=== PATIENT | male | born 2000 | race African-American/Black ===

== ENCOUNTER 2022-02-03 15:42 | Observation (INO) | payer OTHER, SELFPAY ==
[2022-02-03] VITALS (16 sets, daily range): BP systolic 115–129; BP diastolic 69–82; PULSE 62–100; RESP 14–28; TEMP 36.2–36.7; O2SAT 98–100; BMI 20.3
--- NOTE | ~2022-02-03 | XR_ITS ---
EXAMINATION: XR DATE: 02/05/2022 11:00 CDT INDICATION: STONES . TECHNIQUE: 2 fluoroscopic images of the right upper quadrant were obtained during ERCP performed by t calvin surgeon. I was not present in the operating room. Fluoroscopy exposure time was 47.3 seconds. Cumu lative dose was 4.98 mGy. COMPARISON: CT abdomen and pelvis 02/03/2022 FINDINGS: Endoscopic access to the second portion of duodenum with catheterization and wire access into the com mon biliary duct. Small distal filling defect or air bubbles. IMPRESSION: Fluoroscopic documentation of ERCP. Please refer to the operative note for complete procedural detail s . Reviewed, dictated and finalized at location K. IMPRESSION: Fluoroscopic documentation of ERCP. Please refer to the operative note for comp lete procedural details .
--- NOTE | ~2022-02-03 | CT_ITS ---
EXAMINATION: CT abdomen pelvis w con DATE: 02/03/2022 17:02 INDICATION: abd pain TECHNIQUE: Computed tomography (CT) of the abdomen and pelvis was performed with 100 mL Omnipaque-350 intravenous contrast. Automated exposure control and iterative reconstruction technique were employe d. The dose-length product was 180.29 mGy-cm. COMPARISON: None. FINDINGS: Lower thorax: Unremarkable Liver: Mild intrahepatic biliary duct dilation. Biliary/Gallbladder: Cholelithiasis. Mild gallbladder wall edema. No extrahepatic bile duct dilation. 3 and 4 mm stones are seen in the mid and distal common bile duct respectively Pancreas: No mass or duct dilation. Spleen: Normal. Adrenals:No mass. Kidneys: No mass or hydronephrosis. Punctate nonobstructive left upper and lower pole calculi GI tract: Mild distal esophageal and gastric wall edema. No small or large bowel dilation. Appendix n ot visualized. Mesentery/Peritoneum: No ascites, mass, or free air. Retroperitoneum: No mass. Pelvis: Bladder wall thickening. Small volume free pelvic fluid. Soft Tissues: Soft tissues and body wall unremarkable. Bones: H-shaped vertebral body endplate changes. IMPRESSION: Choledocholithiasis with mild intrahepatic biliary duct dilation and without significant extrahepatic biliary duct dilation. Mild gallbladder wall edema. Mild esophagitis/gastritis. Bladder wall thicken ing which may be secondary to incomplete distention or cystitis. Small volume free pelvic fluid. Skel etal changes consistent with given history of sickle cell anemia. Reviewed, dictated and finalized at location K. IMPRESSION: Choledocholithiasis with mild intrahepatic biliary duct dilation and without si gnificant extrahepatic biliary duct dilation. Mild gallbladder wall edema. Mild esophagitis/gastritis. Bladder wall thickening which may be secondary to incom plete distention or cystitis. Small volume free pelvic fluid. Skeletal changes consistent with given history of sickle cell anemia.
--- NOTE | 2022-02-03 16:19 | ED.ABDPAIN ---
HPI - Abdominal Pain General Chief Complaint: Abdominal Pain Stated Complaint: abd pain Time Seen by Provider: 02/03/22 15:45 Source: patient and family Mode of arrival: ambulatory Limitations: no limitations History of Present Illness HPI narrative: 21 years old -[place] male came to the emergency room from home with his father complaining of epigastric pain that started few hours prior to arrival to the emergency room. Patient reported to having intermittent abdominal pain secondary to sickle cell crisis. Patient used to go to [facility], last sickle cell crisis was about 8 to 9-month ago patient went to [facility] at that time. Patient does not take his daily medications. Related Data Allergies Allergy/AdvReac Type Severity Reaction Status Date / Time No Known Allergies Allergy Verified 02/03/22 15:43 Review of Systems Review of Systems: All systems reviewed & are unremarkable except as noted in HPI and below Exam Narrative: General appearance: Well-developed, well-nourished Skin: Normal color Head: Normocephalic, nontraumatic Eyes: Clear conjunctiva ENT: Oropharynx normal, ears normal, nose normal Neck: Supple, nontender Chest and respiratory: Airway patent, no respiratory distress, no accessory muscle use Heart: Regular rate/rhythm Abdomen: Soft, epigastric tenderness, no organomegaly, quiet bowel sounds Vascular: Normal peripheral pulses, normal capillary refill. Musculoskeletal: Normal range of motion, nontender back Neurologic: Alert and oriented ?3, STRUCTURES ENGINEER is normal as tested, no gross motor deficit Course Consultations Consultation #1: DR ROBERTSON Date: 02/03/22 Time: 19:42 Consultation #2: DR LANDRY Date: 02/03/22 Time: 19:42 Vital Signs Vital signs: Vital Signs Temperature 36.4 C 02/03/22 15:49 Pulse Rate 100 02/03/22 15:49 Respiratory Rate 14 02/03/22 15:49 Blood Pressure 128/82 02/03/22 15:49 Pulse Oximetry 100 02/03/22 15:49 Oxygen Delivery Room Air 02/03/22 15:49 Temperature 36.4 C 02/03/22 15:49 Pulse Rate 62 02/03/22 17:45 Respiratory Rate 14 02/03/22 17:45 Blood Pressure 122/81 02/03/22 17:16 Pulse Oximetry 100 02/03/22 17:36 Oxygen Delivery Room Air 02/03/22 15:49 MDM - Abdominal Pain Lab Data Result diagrams: 02/03/22 16:23 02/03/22 16:23 Labs: Lab Results 02/03/22 02/03/22 02/03/22 Range/Units 16:23 16:23 16:23 WBC 9.8 (4.5-10.0) K/mm3 RBC 5.49 (4.6-6.20) M/mm3 Hgb 14.6 (14.0-18.0) g/dL Hct 41.3 L (42.0-52.0) % MCV 75.2 L (80-100) fl MCH 26.6 (26-34) pg MCHC 35.4 (32-36) g/dl RDW 17.5 H (11.5-14.5) % Plt Count 276 (150-375) k/mm3 MPV 11.3 H (7.4-10.4) fl Immature Gran % (Auto) 0.4 (0-0.5) % Neut % (Auto) 79.3 H (45.5-73.1) % Lymph % (Auto) 13.7 L (18.3-44.2) % [place] % (Auto) 5.5 (2.6-8.5) % Eos % (Auto) 0.7 (0-4.4) % Baso % (Auto) 0.4 (0.2-1.2) % Lymph # (Auto) 1.34 (0.9-3.2) K/mm3 [place] # (Auto) 0.5 (0.1-0.6) K/mm3 Eos # (Auto) 0.1 (0-0.3) K/mm3 Baso # (Auto) 0.0 (0.0-0.1) K/mm3 Abs Immat Gran (auto) 0.04 H (0.00-0.031) K/mm3 Absolute Neuts (auto) 7.8 H (1.3-6.7) K/mm3 Absolute Nucleated RBC 0.1 H (0.0-0.012) K/mm3 Nucleated RBC % 1.2 H (0.0-0.2) % Absolute Retic 0.16 L (32.2-175.7) B/L Percent Retic 2.90 (0.7-4.3) % Immature Retic Fraction 22.2 H (3.0-15.9) % Retic Hgb Content 30.6 (28.2-35.7) pg Sodium 143 (137-145) mmol/L Potassium 4.6 (3.4-5.0) mmol/L Chloride 102 (98-107) mmol/L Carbon Dioxide 24 (22-30) mmol/L Anion Gap 17 H (8-
[2022-02-03] MEDS: HYDROmorphone HCL INJ (*CRX) 1 MG/ML SYR 0.5 MG IV PUSH (16:26)
[2022-02-03 16:29] LABS: Immature Reticulocyte Fraction 22.2 % (3.0-15.9); Reticulocyte Hemoglobin Conten 30.6 pg (28.2-35.7); Reticulocytes Absolute 0.16 B/L (32.2-175.7)
[2022-02-03] MEDS: ONDANSETRON INJ 4 MG/2 ML VIAL IV PUSH (16:29)
[2022-02-03] MEDS: SODIUM CHLORIDE 0.9% IV 1,000 ML 999 ML IV CONT ×2 (16:31→19:44)
[2022-02-03 16:33] LABS: Basophils Percent Auto 0.4 % (0.2-1.2); Eosinophils Absolute Auto 0.1 K/mm3 (0-0.3); Eosinophils Percent Auto 0.7 % (0-4.4); Hematocrit 41.3 % (42.0-52.0); Hemoglobin 14.6 g/dL (14.0-18.0); Immature Granulocyte Absolute 0.04 K/mm3 (0.00-0.031); Immature Granulocyte Percent A 0.4 % (0-0.5); Lymphocytes Absolute Auto 1.34 K/mm3 (0.9-3.2); Lymphocytes Percent Auto 13.7 % (18.3-44.2); Mean Corpuscular HGB Conc 35.4 g/dl (32-36); Mean Corpuscular Hemoglobin 26.6 pg (26-34); Mean Corpuscular Volume 75.2 fl (80-100); Mean Platelet Volume 11.3 fl (7.4-10.4); Monocytes Absolute Auto 0.5 K/mm3 (0.1-0.6); Monocytes Percent Auto 5.5 % (2.6-8.5); Neutrophils Absolute Auto 7.8 K/mm3 (1.3-6.7); Neutrophils Percent Auto 79.3 % (45.5-73.1); Nucleated Red Blood Cells Absolute Auto 0.1 K/mm3 (0.0-0.012); Nucleated Red Blood Cells Perc 1.2 % (0.0-0.2); Platelet Count Result 276 k/mm3 (150-375); Red Blood Count 5.49 M/mm3 (4.6-6.20); Red Cell Distribution Width 17.5 % (11.5-14.5); White Blood Count 9.8 K/mm3 (4.5-10.0)
[2022-02-03 16:39] LABS: Alanine Aminotransferase 34 U/L (6-50); Alkaline Phosphatase 103 U/L (38-126); Anion Gap 17 mmol/L (8-16); Aspartate Amino Transferase 90 U/L (17-59); Bilirubin,Total 2.4 mg/dL (0.2-1.3); Blood Urea Nitrogen 10 mg/dL (9-20); Calcium 9.6 mg/dL (8.4-10.2); Carbon Dioxide 24 mmol/L (22-30); Chloride 102 mmol/L (98-107); Estimated CRCL calculation 99 ml/min; Estimated Glomerular Filt Rate > 60; Glucose 105 mg/dL (65-110); Lipase 241 U/L (23-300); Potassium 4.6 mmol/L (3.4-5.0); Sodium 143 mmol/L (137-145)
[2022-02-03 18:07] LABS: Appearance Urine Clear (Clear); Bilirubin Urine Negative (Negative); Blood Urine Negative (Negative); Color Urine Yellow (Yellow); Glucose Urine UA Negative (Negative); Ketones Urine 1+ mg/dL (Negative); Leukocyte Esterase Ur Negative LEU/UL (Negative); Nitrate Urine Negative (Negative); Protein Urine Negative (Negative); Specific Grav Ur <= 1.005 (1.001-1.035)
[2022-02-03 18:33] LABS: Add Urine Microscopic? NO
--- NOTE | 2022-02-03 19:00 | PM.IMHP ---
H&P: HPI History of Present Illness Date/Time: 02/03/22 19:00 Chief Complaint: Abdominal pain. Narrative: This is a pleasant 21-year-old male with sickle cell disease who presented to the ED from home for evaluation of abdominal pain. Several hours prior to arrival he developed the pretty sudden onset of nonradiating, periumbilical and epigastric pain which he describes as aching and throbbing in nature. Initially he thought perhaps he ate something bad as he was also feeling quite nauseated. He took 2 Pepto-Bismol tablets however they did not help and he had a couple of episodes of emesis thereafter. A CT of the abdomen and pelvis done on arrival to the ER showed choledocholithiasis with mild intrahepatic biliary ductal dilation and he is being admitted in this setting for further evaluation. At the time my evaluation he is much more comfortable after receiving antiemetics and IV pain medication he is resting comfortably at this time. He has never had similar symptoms in the past. He denies fever, chills, sweats, hematemesis, diarrhea, and dysuria. He has not noticed any yellowing of the skin and denies rash and pruritus. Review of Systems Review of Systems: Twelve systems were reviewed. No fever, chills, or sweats. No cold or flu symptoms. He denies sick contacts. No chest pain or shortness of breath. His last sickle cell pain crises was approximately 9 months ago. He recently established with the sickle cell clinic at [place]. Except as documented, all other systems were reviewed and are negative. [facility] Past Medical History Medical History (Updated 02/03/22 @ 23:30 by Laisha Galvin PA-C) Sickle cell disease Surgical History Surgical History (Updated 02/03/22 @ 23:21 by Laisha Galvin PA-C) No history of previous surgery Family History Family History (Updated 02/03/22 @ 23:21 by Laisha Galvin PA-C) Other Sickle cell anemia Social History Social History (Updated 02/03/22 @ 23:22 by Laisha Galvin PA-C) Social History: Surrogate medical decision maker: Nicole Alegria Sr. Code status: Full code. Smoking status: Never smoker Second hand tobacco smoke exposure: No Alcohol intake: never Substance use: current Substance use type: marijuana Additional living arrangements comments: Currently living with his dad in [place]. Additional occupation/education comments: Works at [employer]. Spiritual care concerns: No Meds Home Medications and Allergies Home Medications Medication Instructions Recorded Confirmed Type No Home Medications 02/03/22 02/03/22 History Allergies Allergy/AdvReac Type Severity Reaction Status Date / Time No Known Allergies Allergy Verified 02/03/22 15:43 Vital Signs Vital Signs - 24 hr 02/03/22 15:49 02/03/22 15:56 02/03/22 16:00 Temperature 97.6 F Pulse Rate 100 Respiratory Rate 14 Blood Pressure 128/82 Pulse Oximetry 100 100 100 Oxygen Delivery Room Air 02/03/22 16:42 02/03/22 17:13 02/03/22 17:15 Temperature Pulse Rate Respiratory Rate Blood Pressure Pulse Oximetry 100 100 98 Oxygen Delivery 02/03/22 17:16 02/03/22 17:17 02/03/22 17:36 Temperature Pulse Rate 65 Respiratory Rate 16 Blood Pressure 122/81 Pulse Oximetry 100 99 100 Oxygen Delivery 02/03/22 17:45 02/03/22 18:00 02/03/22 18:21 Temperature Pulse Rate 62 63 70 Respiratory Rate 14 14 15 Blood Pressure Pulse Oximetry 99 100 Oxygen Delivery Exam Narrative: General: Well-developed, thin male lying on his right side in bed in no acute distress. Weight: 58.1 kg. BMI: 20.4. HEENT: PERRL, EOMI. Sclera anicteric. Conjunctiva mildly injected. Tacky mucous membranes. Neck: Supple. Respiratory: Lungs are clear to auscultation bilaterally. Cardiovascular: Regular rate and rhythm with S1-S2. Gastrointestinal: Abdomen is soft and nondistended with positive bowel sounds. He is somewhat tende
[2022-02-03 19:16] LABS: Barbiturate Screen Urine Negative (Negative); Benzodiazepines Screen Urine Negative (Negative)
[2022-02-03 19:18] LABS: Amphetamine Screen Urine Negative (Negative); Cannabinoid Screen Urine Positive (Negative); Cocaine Screen Urine Negative (Negative); Methadone Screen Urine Negative (Negative); Opiate Screen Urine Negative (Negative); Phencyclidine Screen Urine Negative (Negative)
[2022-02-03] MEDS: PANTOPRAZOLE SODIUM IV 40 MG VIAL IV PUSH (19:44)
--- NOTE | 2022-02-03 20:22 | ADMGEN ---
This patient, Nicole Alegria Jr., was admitted to [address] [place] [address] Room 300-01. Patient/family oriented to hospital policies and general routines including ID bracelet, bed and alarms, visiting hours, pain management, procedures, bathroom and other care routines, personal items, smoking policy, room service/diet, and visiting hours. Information on how to activate the Rapid Response Team has been discussed. Patient/Family are encouraged to report perceived risks to care and to ask questions if they do not understand what they are told or what they should do.
[2022-02-03] MEDS: SODIUM CHLORIDE 0.9% IV 1,000 ML 200 ML IV CONT (22:05)
[2022-02-04 05:34] VITALS: BP 115/60; PULSE 52; RESP 16; TEMP 36.3; O2SAT 100
[2022-02-04 06:02] LABS: Basophils Absolute Auto 0.1 K/mm3 (0.0-0.1); Basophils Percent Auto 0.8 % (0.2-1.2); Eosinophils Absolute Auto 0.2 K/mm3 (0-0.3); Eosinophils Percent Auto 2.4 % (0-4.4); Hematocrit 35.2 % (42.0-52.0); Hemoglobin 12.4 g/dL (14.0-18.0); Immature Granulocyte Absolute 0.02 K/mm3 (0.00-0.031); Immature Granulocyte Percent A 0.2 % (0-0.5); Lymphocytes Absolute Auto 3.26 K/mm3 (0.9-3.2); Lymphocytes Percent Auto 35.6 % (18.3-44.2); Mean Corpuscular HGB Conc 35.2 g/dl (32-36); Mean Corpuscular Hemoglobin 26.4 pg (26-34); Mean Corpuscular Volume 75.1 fl (80-100); Mean Platelet Volume 11.5 fl (7.4-10.4); Monocytes Absolute Auto 0.9 K/mm3 (0.1-0.6); Monocytes Percent Auto 9.7 % (2.6-8.5); Neutrophils Absolute Auto 4.7 K/mm3 (1.3-6.7); Neutrophils Percent Auto 51.3 % (45.5-73.1); Nucleated Red Blood Cells Absolute Auto 0.1 K/mm3 (0.0-0.012); Nucleated Red Blood Cells Perc 0.8 % (0.0-0.2); Platelet Count Result 221 k/mm3 (150-375); Red Blood Count 4.69 M/mm3 (4.6-6.20); Red Cell Distribution Width 16.1 % (11.5-14.5); White Blood Count 9.2 K/mm3 (4.5-10.0)
[2022-02-04 06:18] LABS: Alanine Aminotransferase 24 U/L (6-50); Albumin Level 3.7 g/dL (3.5-5.1); Alkaline Phosphatase 78 U/L (38-126); Anion Gap 8 mmol/L (8-16); Aspartate Amino Transferase 37 U/L (17-59); Bilirubin,Total 1.3 mg/dL (0.2-1.3); Blood Urea Nitrogen 7 mg/dL (9-20); Carbon Dioxide 24 mmol/L (22-30); Chloride 106 mmol/L (98-107); Estimated CRCL calculation 104 ml/min; Estimated Glomerular Filt Rate > 60; Glucose 84 mg/dL (65-110); Lipase 170 U/L (23-300); Magnesium 1.9 mg/dL (1.6-2.3); Potassium 3.9 mmol/L (3.4-5.0); Sodium 138 mmol/L (137-145)
[2022-02-04] MEDS: PANTOPRAZOLE SODIUM IV 40 MG VIAL IV PUSH (07:59)
--- NOTE | 2022-02-04 08:58 | WPDGICN ---
Assessment and Plan Assessment and plan (1) Sickle cell disease: Code(s): D57.1 - Sickle-cell disease without crisis Status: Acute Assessment and Plan: Patient with sickle cell disease this likely accounts for his microcytosis. Patient has had previous abdominal pain episodes and bone pain. Likely needs to continue follow-up with Hematology service long-term. (2) Abdominal pain: Code(s): R10.9 - Unspecified abdominal pain Status: Acute Assessment and Plan: Abdominal pain suspicious for relation to gallbladder disease cholelithiasis and choledocholithiasis. Patient has had abdominal pain episodes related to his sickle cell. Plan for supportive care present. Plan to proceed with ERCP and surgical consult for gallstones. (3) Choledocholithiasis: Code(s): K80.50 - Calculus of bile duct without cholangitis or cholecystitis without obstruction Status: Acute Assessment and Plan: CT scanning reveals gallstones in the gallbladder as well as common bile duct gallstones. This appears to correlate with elevated bilirubin bilirubin is improved this morning. Plan is for surgical consultation will anticipate ERCP on Friday or early this next week. GI Consult Note Consult date/time: 02/04/22 08:58 Reason for consult: Choledocholithiasis. HPI: Nicole Alegria Jr. is a 21 year old male With an underlying history of sickle cell anemia. Patient has intermittent abdominal pain crises and typically will get episodes of bone pain. Patient developed rather significant epigastric abdominal pain yesterday and for this reason present to the emergency room. CT scan suggested common bile duct gallstones. Also he had mild elevation of the bilirubin. This is improved this morning. Patient had not previously known that he had gallstones. Family history is noncontributory. Review of Systems Review of Systems: Review of systems noncontributory. [facility] Past Medical History Medical History (Updated 02/03/22 @ 23:30 by Laisha Galvin PA-C) Sickle cell disease Surgical History Surgical History (Updated 02/03/22 @ 23:21 by Laisha Galvin PA-C) No history of previous surgery Family History Family History (Updated 02/03/22 @ 23:21 by Laisha Galvin PA-C) Other Sickle cell anemia Social History Social History (Updated 02/03/22 @ 23:22 by Laisha Galvin PA-C) Social History: Surrogate medical decision maker: Nicole Alegria Sr. Code status: Full code. Smoking status: Never smoker Second hand tobacco smoke exposure: No Alcohol intake: never Substance use: current Substance use type: marijuana Additional living arrangements comments: Currently living with his dad in [place]. Additional occupation/education comments: Works at [employer] Spiritual care concerns: No Meds Home Medications and Allergies Home Medications Medication Instructions Recorded Confirmed Type No Home Medications 02/03/22 02/03/22 History Allergies Allergy/AdvReac Type Severity Reaction Status Date / Time No Known Allergies Allergy Verified 02/03/22 15:43 Vital Signs Vital Signs - 24 hr 02/03/22 15:49 02/03/22 15:56 02/03/22 16:00 Temperature 97.6 F Pulse Rate 100 Respiratory Rate 14 Blood Pressure 128/82 Pulse Oximetry 100 100 100 Oxygen Delivery Room Air 02/03/22 16:42 02/03/22 17:13 02/03/22 17:15 Temperature Pulse Rate Respiratory Rate Blood Pressure Pulse Oximetry 100 100 98 Oxygen Delivery 02/03/22 17:16 02/03/22 17:17 02/03/22 17:36 Temperature Pulse Rate 65 Respiratory Rate 16 Blood Pressure 122/81 Pulse Oximetry 100 99 100 Oxygen Delivery 02/03/22 17:45 02/03/22 18:00 02/03/22 18:21 Temperature Pulse Rate 62 63 70 Respiratory Rate 14 14 15 Blood Pressure Pulse Oximetry 99 100 Oxygen Delivery 02/03/22 19:46 02/03/22 18:30 02/03/22 1
[2022-02-04 09:31] LABS: INR 1.2; Prothrombin Time 14.9 Seconds (11.1-14.7)
--- NOTE | 2022-02-04 12:15 | PM.CNGS ---
Assessment and Plan Assessment and plan (1) Choledocholithiasis: Code(s): K80.50 - Calculus of bile duct without cholangitis or cholecystitis without obstruction Status: Acute Assessment and Plan: enzymes improved, exam benign, GI planning ERCP tomorrow (2) Acute cholecystitis: Code(s): K81.0 - Acute cholecystitis Status: Acute Assessment and Plan: will need interval cholecystectomy, timing discussed with patient and family (3) Sickle cell disease: Code(s): D57.1 - Sickle-cell disease without crisis Status: Acute Assessment and Plan: stable, management per primary team History of Present Illness Consult details Consult date: 02/04/22 Reason for consult: abdominal pain Requesting physician: Gilda Berg PA-C Narrative: The patient is a 21-year-old male with a history of sickle cell anemia presenting with severe epigastric, right upper quadrant abdominal pain. The patient reports that the pain was sharp and unrelenting. The patient reports associated bloating and nausea. The patient denies previous similar episodes. Workup in the emergency department, including imaging, was significant for cholecystitis, choledocholithiasis. Review of Systems Constitutional: Constitutional: Reports as per HPI, Denies anorexia, Denies chills, Reports fatigue, Denies fever(s), Denies lethargy, Reports poor appetite and Reports weakness Eyes: Eyes: Reports no additional eye complaints ENT: Reports system reviewed and no additional complaints, except as documented Cardiovascular: Cardiovascular: Reports no additional cardiovascular complaints Respiratory: Respiratory: Reports no additional respiratory complaints Gastrointestinal: Gastrointestinal: Reports as per HPI, Reports abdominal pain, Reports bloating, Reports GI cramping, Reports nausea and Denies vomiting Genitourinary: Genitourinary: Reports no additional male genitourinary complaints Musculoskeletal: Musculoskeletal: Reports no additional musculoskeletal complaints Integumentary/Breasts: Skin/Breast: Reports system reviewed and no additional complaints, except as docu Neurologic: Reports system reviewed and no additional complaints, except as documented Psychiatric: Psychiatric: Reports no additional psychiatric complaints Endocrine: Endocrine: Reports no additional endocrine complaints Hematologic/Lymphatic: Hematologic/Lymphatic: Reports no additional hematologic/lymphatic complaints Allergic/Immunologic: Allergic/Immunologic: Reports no additional allergic/immunologic complaints PMFSH Past Medical History Medical History Sickle cell disease Surgical History Surgical History No history of previous surgery Family History Family History Other Sickle cell anemia Social History Social History Social History: Surrogate medical decision maker: Nicole Alegria Sr. Code status: Full code. Smoking status: Never smoker Second hand tobacco smoke exposure: No Alcohol intake: never Substance use: current Substance use type: marijuana Additional living arrangements comments: Currently living with his dad in [place]. Additional occupation/education comments: Works at [employer] Spiritual care concerns: No Meds Home Medications and Allergies Home Medications Medication Instructions Recorded Confirmed Type No Home Medications 02/03/22 02/03/22 History Allergies Allergy/AdvReac Type Severity Reaction Status Date / Time No Known Allergies Allergy Verified 02/03/22 15:43 Vital Signs Vital Signs - 24 hr 02/03/22 15:49 02/03/22 15:56 02/03/22 16:00 Temperature 36.4 C Pulse Rate 100 Respiratory Rate 14 Blood Pressure 128/82 Pulse Oximetry 1
[2022-02-04] MEDS: SODIUM CHLORIDE 0.9% IV 1,000 ML 100 ML IV CONT ×2 (12:20→20:49)
--- NOTE | 2022-02-04 13:59 | PM.IMPN ---
Progress Note: A&P Assessment and Plan (1) Abdominal pain: Code(s): R10.9 - Unspecified abdominal pain Status: Acute Assessment and Plan: Secondary to findings of choledocholithiasis and esophagitis/gastritis noted on CT. Continue IV Protonix. Antiemetics and analgesics available as needed. Additional plan as detailed below (2) Choledocholithiasis: Code(s): K80.50 - Calculus of bile duct without cholangitis or cholecystitis without obstruction Status: Acute Assessment and Plan: Choledocholithiasis with mild intrahepatic biliary duct dilatation noted on imaging though no significant extrahepatic biliary duct dilatation was seen. Total bilirubin has normalized and LFTs are within normal limits Appreciate general surgery and gastroenterology consultation. Planning for ERCP tomorrow. Analgesics and antiemetics available as needed. Clear liquid diet. Continue gentle IV fluids until better tolerating diet. (3) Acute cholecystitis: Code(s): K81.0 - Acute cholecystitis Status: Acute Assessment and Plan: CT of the abdomen/pelvis adjust gallbladder wall edema and findings consistent of acute cholecystitis. Appreciate general surgery consultation. Patient will need interval cholecystectomy. Timing of surgery deferred to Dr. Pena. Appreciate general surgery consultation. Continue IV Zosyn. (4) Gastritis: Code(s): K29.70 - Gastritis, unspecified, without bleeding Status: Acute Assessment and Plan: Mild gastritis/esophagitis noted on CT. Continue IV Protonix. (5) Sickle cell disease: Code(s): D57.1 - Sickle-cell disease without crisis Status: Acute Assessment and Plan: No acute issues. Continue with regularly scheduled outpatient hematology follow-up Subjective Date/time seen: 02/04/22 13:59 Interval history: Date of service: 02/04/2022 Nicole Alegria is a 21-year-old male a history of sickle cell disease who is seen in follow-up for choledocholithiasis and acute cholecystitis. He is feeling well today. His pain is better controlled now he is comfortable. Denies nausea, vomiting. No fevers or chills. Denies shortness breath or cough. No chest pain, pain in arms or legs. Reports he has not had any issues related to his sickle cell disease in over 1 year. Review of Systems Review of Systems: All systems reviewed & are unremarkable except as noted in HPI and below Exam Narrative: General: Thin, well-appearing 21-year-old male, sitting up in bed, comfortable, NARD Neuro: awake, alert and oriented x4, speech clear, no focal neuro deficits noted HEENMT: normocephalic, atraumatic, EOMI, sclerae anicteric Respiratory: clear to auscultation bilaterally, nonlabored breathing Cardio: regular rate, regular rhythm with S1-S2 Abdomen: nondistended, normoactive bowel sounds, soft, slightly tender to palpation Extremities: no edema, erythema, or tenderness to palpation, DP pulses 2+ bilaterally Skin: no rashes or lesions, warm and dry Psych: appropriate mood and affect, judgment and insight intact Objective Data Vital Signs Vital Signs: Vital Signs - 24 hr 02/03/22 15:49 02/03/22 15:56 02/03/22 16:00 Temperature 97.6 F Pulse Rate 100 Respiratory Rate 14 Blood Pressure 128/82 Pulse Oximetry 100 100 100 Oxygen Delivery Room Air 02/03/22 16:42 02/03/22 17:13 02/03/22 17:15 Temperature Pulse Rate Respiratory Rate Blood Pressure Pulse Oximetry 100 100 98 Oxygen Delivery 02/03/22 17:16 02/03/22 17:17 02/03/22 17:36 Temperature Pulse Rate 65 Respiratory Rate 16 Blood Pressure 122/81 Pulse Oximetry 100 99 100 Oxygen Delivery 02/03/22 17:45 02/03/22 18:00 02/03/22 18:21 Temperature Pulse Rate 62 63 70 Respiratory Rate 14 14 15 Blood Pressure Pulse Oximetry 99 100 Oxygen Delivery 02/03/22 19:46 02/03/22 18:30 02/03/22 19:49 Temperat
[2022-02-04 14:11] VITALS: BP 112/68; PULSE 105; RESP 16; TEMP 36.2; O2SAT 100
[2022-02-04 21:26] VITALS: BP 126/86; PULSE 70; RESP 14; TEMP 36.2; O2SAT 100
[2022-02-04 23:36] VITALS: BP 111/67; PULSE 63; RESP 14; TEMP 36.1; O2SAT 99
[2022-02-05] VITALS (11 sets, daily range): BP systolic 116–147; BP diastolic 68–93; PULSE 48–87; RESP 14–24; TEMP 36–36.9; O2SAT 98–100
[2022-02-05 05:53] LABS: Hematocrit 34.2 % (42.0-52.0); Hemoglobin 12.4 g/dL (14.0-18.0); Mean Corpuscular HGB Conc 36.3 g/dl (32-36); Mean Corpuscular Hemoglobin 26.5 pg (26-34); Mean Corpuscular Volume 73.1 fl (80-100); Mean Platelet Volume 11.6 fl (7.4-10.4); Platelet Count Result 239 k/mm3 (150-375); Red Blood Count 4.68 M/mm3 (4.6-6.20); Red Cell Distribution Width 16.1 % (11.5-14.5); White Blood Count 7.5 K/mm3 (4.5-10.0)
[2022-02-05 06:07] LABS: Alanine Aminotransferase 21 U/L (6-50); Alkaline Phosphatase 77 U/L (38-126); Anion Gap 15 mmol/L (8-16); Aspartate Amino Transferase 31 U/L (17-59); Bilirubin,Total 1.9 mg/dL (0.2-1.3); Blood Urea Nitrogen 5 mg/dL (9-20); Calcium 8.7 mg/dL (8.4-10.2); Carbon Dioxide 25 mmol/L (22-30); Chloride 101 mmol/L (98-107); Estimated CRCL calculation 85 ml/min; Estimated Glomerular Filt Rate > 60; Glucose 84 mg/dL (65-110); Potassium 3.7 mmol/L (3.4-5.0); Sodium 141 mmol/L (137-145)
[2022-02-05] MEDS: PANTOPRAZOLE SODIUM IV 40 MG VIAL IV PUSH (08:24)
[2022-02-05] MEDS: LACTATED RINGERS 1,000 ML 150 ML IV CONT (10:46)
--- NOTE | 2022-02-05 10:49 | WPDANESEPPF ---
Anes - Initial Pre Proc Eval Procedure: Operation Date: 02/05/22 12:30 Proposed Procedures p Endoscopic Retro Cholangiopancreatogram - Jarrod Avendano MD Date/Time: 02/05/22 10:49 Surgeon: Gilda Berg PA-C Pre Op Diagnosis: Abdominal Pain,Choledocholithiasis,Gastritis Patient Data Age: 21 Gender: M Height: 1.69 m Weight: 58 kg Last Vital Signs Temp 36.3 C L 02/05/22 10:42 Pulse 59 L 02/05/22 10:42 Resp 16 02/05/22 10:42 BP 147/89 H 02/05/22 10:42 Pulse Ox 100 02/05/22 10:42 O2 Del Method Room Air 02/05/22 10:42 Allergies Allergy/AdvReac Type Severity Reaction Status Date / Time No Known Allergies Allergy Verified 02/05/22 10:39 Home Medications Medication Instructions Recorded Confirmed Type No Home Medications 02/03/22 02/03/22 History Laboratory Tests 02/05/22 02/05/22 05:26 05:26 WBC 7.5 K/mm3 K/mm3 (4.5-10.0) RBC 4.68 M/mm3 M/mm3 (4.6-6.20) Hgb 12.4 g/dL L g/dL (14.0-18.0) Hct 34.2 % L % (42.0-52.0) MCV 73.1 fl L fl (80-100) MCH 26.5 pg pg (26-34) MCHC 36.3 g/dl H g/dl (32-36) RDW 16.1 % H % (11.5-14.5) Plt Count 239 k/mm3 k/mm3 (150-375) MPV 11.6 fl H fl (7.4-10.4) Sodium 141 mmol/L mmol/L (137-145) Potassium 3.7 mmol/L mmol/L (3.4-5.0) Chloride 101 mmol/L mmol/L (98-107) Carbon Dioxide 25 mmol/L mmol/L (22-30) Anion Gap 15 mmol/L mmol/L (8-16) BUN 5 mg/dL L mg/dL (9-20) Creatinine 1.00 mg/dL mg/dL (0.7-1.3) Estim Creat Clear Calc 85 ml/min ml/min Estimated GFR > 60 (59 - ) Glucose 84 mg/dL mg/dL (65-110) Calcium 8.7 mg/dL mg/dL (8.4-10.2) Total Bilirubin 1.9 mg/dL H mg/dL (0.2-1.3) AST 31 U/L U/L (17-59) ALT 21 U/L U/L (6-50) Alkaline Phosphatase 77 U/L U/L (38-126) Total Protein 7.0 g/dL g/dL (6.3-8.2) Albumin 4.0 g/dL g/dL (3.5-5.1) Patient hx anesthesia problems: none Family hx anesthesia problems: none Results Review: All pre-operative results and documents have been reviewed as part of the pre-operative evaluation. [facility] Past Medical History Medical History Sickle cell disease Surgical History Surgical History (Updated 02/05/22 @ 10:53 by Frankie Britton MD) Hx of tonsillectomy Family History Family History Other Sickle cell anemia Social History Social History Social History: Surrogate medical decision maker: Nicole Alegria Sr. Code status: Full code. Smoking status: Never smoker Second hand tobacco smoke exposure: No Alcohol intake: never Substance use: current Substance use type: marijuana Additional living arrangements comments: Currently living with his dad in [place]. Additional occupation/education comments: Works at [employer] Spiritual care concerns: No Anes - Eval Final PreProcedure Day of Procedure 02/05/22 10:49 Patient weight: normal Heart: regular rate and rhythm Lungs: clear to auscultation Airway: Mallampati scale class II Neurological: alert and oriented Last oral intake: >/= 8 hours ASA classification: II Emergent: no Anesthesia type and monitoring: general ETT and standard monitoring Results Review: All pre-operative results and documents have been reviewed as part of the pre-operative evaluation. Informed Consent: The patient's anesthetic plan and its attendant risks and benefits were discussed with the patient/family/POA. Questions were solicited and answers provided to the satisfaction of the patient/family/POA.
--- NOTE | 2022-02-05 14:00 | PM.IMPN ---
Progress Note: A&P Assessment and Plan (1) Abdominal pain: Code(s): R10.9 - Unspecified abdominal pain Status: Acute Assessment and Plan: Secondary to findings of choledocholithiasis and esophagitis/gastritis noted on CT. Continue IV Protonix. Antiemetics and analgesics available as needed. Additional plan as detailed below (2) Choledocholithiasis: Code(s): K80.50 - Calculus of bile duct without cholangitis or cholecystitis without obstruction Status: Acute Assessment and Plan: Choledocholithiasis with mild intrahepatic biliary duct dilatation noted on imaging though no significant extrahepatic biliary duct dilatation was seen. LFTs are within normal limits. slight increase in total bilirubin today to 1.9. Appreciate general surgery and gastroenterology consultation. ERCP completed today with sphincterotomy and balloon sweep with no stones retrieved. Analgesics and antiemetics available as needed. Further plan as below. (3) Acute cholecystitis: Code(s): K81.0 - Acute cholecystitis Status: Acute Assessment and Plan: CT of the abdomen/pelvis showed gallbladder wall edema and findings consistent of acute cholecystitis. Appreciate general surgery consultation. Patient will need interval cholecystectomy. Timing of surgery deferred to Dr. Dickinson. Appreciate general surgery consultation. Continue IV Zosyn. continue full liquid diet. Advance diet as tolerated per surgical recommendations. Continue gentle IV fluids until better tolerating diet. (4) Gastritis: Code(s): K29.70 - Gastritis, unspecified, without bleeding Status: Acute Assessment and Plan: Mild gastritis/esophagitis noted on CT. Continue IV Protonix. (5) Sickle cell disease: Code(s): D57.1 - Sickle-cell disease without crisis Status: Acute Assessment and Plan: No acute issues. Continue with regularly scheduled outpatient hematology follow-up Subjective Date/time seen: 02/05/22 14:00 Interval history: Date of service: 02/05/2022 Nicole Alegria is a 21-year-old male a history of sickle cell disease who is seen in follow-up for acute cholecystitis. He is doing well today. He has no abdominal pain. Tolerating a liquid diet. No nausea, vomiting, fever, or chills. He endorses a loose stool this morning. Denies pain. No shortness of breath, cough, chest pain. Review of Systems Review of Systems: All systems reviewed & are unremarkable except as noted in HPI and below Exam Narrative: General: Thin, well-appearing 21-year-old male, sitting up in bed, comfortable, NARD Neuro: awake, alert and oriented x4, speech clear, no focal neuro deficits noted HEENMT: normocephalic, atraumatic, EOMI, sclerae anicteric Respiratory: clear to auscultation anteriorly, nonlabored breathing Cardio: regular rate, regular rhythm with S1-S2 Abdomen: nondistended, normoactive bowel sounds, soft, nontender to palpation Extremities: no edema, erythema, or tenderness to palpation, DP pulses 2+ bilaterally Skin: no rashes or lesions, warm and dry Psych: appropriate mood and affect, judgment and insight intact Objective Data Vital Signs Vital Signs: Vital Signs - 24 hr 02/04/22 14:11 02/04/22 21:26 02/04/22 23:36 Temperature 97.1 F L 97.1 F L 96.9 F L Pulse Rate 105 H 70 63 Respiratory Rate 16 14 14 Blood Pressure 112/68 126/86 111/67 Pulse Oximetry 100 100 99 Oxygen Delivery Oxygen Flow Rate 02/05/22 06:00 02/05/22 10:42 02/05/22 11:45 Temperature 97 F L 97.4 F L 96.9 F L Pulse Rate 52 L 59 L 87 Respiratory Rate 16 16 24 H Blood Pressure 118/78 147/89 H 124/68 Pulse Oximetry 100 100 98 Oxygen Delivery Room Air Simple Face Mask Oxygen Flow Rate 8 02/05/22 11:55 02/05/22 12:05 02/05/22 12:15 Temperature Pulse Rate 74 64 56 L Respiratory Rate 15 22 H 22 H Blood Pressure 133/86 121/80 116/79 Pulse Oximetry 100 100 100 Oxygen Del
[2022-02-05] MEDS: SODIUM CHLORIDE 0.9% IV 1,000 ML 65 ML IV CONT (14:28)
--- NOTE | 2022-02-05 16:31 | PM.PNGS ---
Progress Note: A&P Assessment and Plan (1) Cholecystitis with cholelithiasis: Code(s): K80.10 - Calculus of gallbladder with chronic cholecystitis without obstruction Status: Acute Assessment and Plan: exam benign, ADAT, ERCP normal, d/w pt and he would like to go home and have interval cholecystectomy as outpt, plan for CMP, lipase in a few days and schedule interval augusto if normalized Subjective Subjective Date/Time Seen: 02/05/22 16:31 feels good, shirin clears, ERCP reviewed Review of Systems Review of Systems: All systems reviewed & are unremarkable except as noted in HPI and below Exam Const: General: cooperative, healthy appearing, comfortable and no acute distress Resp: Auscultation: clear to auscultation bilaterally Cardio: Rate: regular rate Rhythm: regular rhythm GI: Inspection: normal to inspection and distended GI Palp: No abdominal tenderness, Yes Soft to palpation, No Tenderness to palpation present (GI), No Guarding due to palpation present (GI) and No Rigid due to palpation Objective Data Vital Signs Vital Signs: Vital Signs - 24 hr 02/04/22 21:26 02/04/22 23:36 02/05/22 06:00 Temperature 36.2 C L 36.1 C L 36.1 C L Pulse Rate 70 63 52 L Respiratory Rate 14 14 16 Blood Pressure 126/86 111/67 118/78 Pulse Oximetry 100 99 100 Oxygen Delivery Oxygen Flow Rate 02/05/22 10:42 02/05/22 11:45 02/05/22 11:55 Temperature 36.3 C L 36.1 C L Pulse Rate 59 L 87 74 Respiratory Rate 16 24 H 15 Blood Pressure 147/89 H 124/68 133/86 Pulse Oximetry 100 98 100 Oxygen Delivery Room Air Simple Face Mask Simple Face Mask Oxygen Flow Rate 8 4 02/05/22 12:05 02/05/22 12:15 02/05/22 12:25 Temperature Pulse Rate 64 56 L 65 Respiratory Rate 22 H 22 H 20 Blood Pressure 121/80 116/79 117/69 Pulse Oximetry 100 100 100 Oxygen Delivery Room Air Room Air Room Air Oxygen Flow Rate 02/05/22 12:35 02/05/22 12:52 02/05/22 14:00 Temperature 36.0 C L 36.4 C L Pulse Rate 54 L 48 L 50 L Respiratory Rate 22 H 18 14 Blood Pressure 122/77 119/90 134/93 H Pulse Oximetry 100 100 100 Oxygen Delivery Room Air Oxygen Flow Rate Intake/Output Intake/Output: Intake & Output 02/02/22 02/03/22 02/04/22 02/05/22 23:59 23:59 23:59 23:59 Intake Total 1050 3110 1500 Balance 1050 3110 1500 Meds/Results Medications: Active Medications Generic Name Dose Route Start Last Admin Trade Name Freq PRN Reason Stop Dose Admin Acetaminophen 650 mg 02/04/22 14:15 Acetaminophen 325 Mg Tablet PO Q4H PRN pain 1-3 Hydromorphone HCl 0.5 mg 02/03/22 19:17 Hydromorphone Hcl Inj (*Crx) 1 Mg/Ml Syr IV PUSH Q4H PRN Pain Rated 7-10 Sodium Chloride 1,000 mls @ 65 mls/hr 02/03/22 19:20 02/05/22 14:28 Normal Saline Iv IV CONT 65 mls/hr .[id number] MAYDA Administration Piperacillin/Tazobactam/Dextrose 3.375 gm in 50 mls @ 100 mls/hr 02/03/22 21:00 02/05/22 14:59 Zosyn 3.375 Gm/D5w 50ml Pm IVPB Infused Q6H MAYDA Infusion Ondansetron HCl 4 mg 02/03/22 19:17 Ondansetron Inj 4 Mg/2 Ml Vial IV PUSH Q4H PRN Nausea Pantoprazole Sodium 40 mg 02/04/22 09:00 02/05/22 08:24 Pantoprazole Sodium Iv 40 Mg Vial IV PUSH 40 mg QAM MAYDA Administration Tramadol HCl 50 mg 02/04/22 14:15 Tramadol Hcl (*Crx) 50 Mg Tablet PO Q6H PRN Pain Rated 4-6 Radiology Results: ITS Impressions Abdomen/Pelvis CT 02/03/22 17:10 IMPRESSION: Choledocholithiasis with mild intrahepatic biliary duct dilation and without significant extrahepatic biliary duct dilation. Mild gallbladder wall edema. Mild esophagitis/gastritis. Bladder wall thickening which may be secondary to incomplete distention or cystitis. Small volume free pelvic fluid. Skeletal changes consistent with given history of sickle cell anemia. Endo Retro Cholangiopancreatogram 02/05/22 14:16 IMPRESSION: Fluoroscopic documentation of ERCP. Please refer to the
[2022-02-06 05:58] LABS: Hematocrit 33.8 % (42.0-52.0); Hemoglobin 12.2 g/dL (14.0-18.0); Mean Corpuscular HGB Conc 36.1 g/dl (32-36); Mean Corpuscular Hemoglobin 26.3 pg (26-34); Mean Platelet Volume 11.8 fl (7.4-10.4); Platelet Count Result 225 k/mm3 (150-375); Red Blood Count 4.63 M/mm3 (4.6-6.20); Red Cell Distribution Width 15.8 % (11.5-14.5); White Blood Count 12.2 K/mm3 (4.5-10.0)
[2022-02-06 06:09] LABS: Alanine Aminotransferase 17 U/L (6-50); Albumin Level 3.9 g/dL (3.5-5.1); Alkaline Phosphatase 70 U/L (38-126); Anion Gap 13 mmol/L (8-16); Aspartate Amino Transferase 31 U/L (17-59); Bilirubin,Total 1.7 mg/dL (0.2-1.3); Blood Urea Nitrogen 4 mg/dL (9-20); Calcium 8.7 mg/dL (8.4-10.2); Carbon Dioxide 25 mmol/L (22-30); Chloride 102 mmol/L (98-107); Estimated CRCL calculation 85 ml/min; Estimated Glomerular Filt Rate > 60; Glucose 89 mg/dL (65-110); Potassium 3.8 mmol/L (3.4-5.0); Sodium 140 mmol/L (137-145)
[2022-02-06 06:47] VITALS: BP 116/83; PULSE 61; RESP 20; TEMP 36.4; O2SAT 100
[2022-02-06] MEDS: SODIUM CHLORIDE 0.9% IV 1,000 ML 65 ML IV CONT (07:49)
--- NOTE | 2022-02-06 07:50 | WPDGIPROGNO ---
Progress Note: A&P Assessment and Plan (1) Sickle cell disease: Code(s): D57.1 - Sickle-cell disease without crisis Status: Acute Assessment and Plan: Patient with sickle cell disease. No crisis at present. Continue follow-up with Hematology advised. (2) Abdominal pain: Code(s): R10.9 - Unspecified abdominal pain Status: Acute Assessment and Plan: Abdominal pain that the patient presented with has now resolved. Likely related symptomatic gallstones. (3) Cholecystitis with cholelithiasis: Code(s): K80.10 - Calculus of gallbladder with chronic cholecystitis without obstruction Status: Acute Assessment and Plan: Gallstones evident. No signs of ongoing infection. Plan for surgical therapy. Under the direction. I understand they wish for him to be discharged and come back for this. No gallstones and common duct by ERCP yesterday. They may have passed spontaneously. Subjective Date/time seen: 02/06/22 07:50 Patient alert comfortable this morning. Denies abdominal pain. Tolerated low-fat diet last evening. Had ERCP yesterday with clear common bile duct. Previous stones past. He continues to have cholelithiasis that appears to have been symptomatic. Surgery anticipated Review of Systems Review of Systems: review systems noncontributory. Exam Narrative: Physical exam reveals patient be alert. Vital signs stable. HEENT exam reveals no icterus. Lungs are clear. Heart without murmur. Abdomen bowel sounds present soft nontender with no organomegaly. Objective Data Vital Signs Vital Signs: Vital Signs - 24 hr 02/05/22 10:42 02/05/22 11:45 02/05/22 11:55 Temperature 97.4 F L 96.9 F L Pulse Rate 59 L 87 74 Respiratory Rate 16 24 H 15 Blood Pressure 147/89 H 124/68 133/86 Pulse Oximetry 100 98 100 Oxygen Delivery Room Air Simple Face Mask Simple Face Mask Oxygen Flow Rate 8 4 02/05/22 12:05 02/05/22 12:15 02/05/22 12:25 Temperature Pulse Rate 64 56 L 65 Respiratory Rate 22 H 22 H 20 Blood Pressure 121/80 116/79 117/69 Pulse Oximetry 100 100 100 Oxygen Delivery Room Air Room Air Room Air Oxygen Flow Rate 02/05/22 12:35 02/05/22 12:52 02/05/22 14:00 Temperature 96.8 F L 97.5 F L Pulse Rate 54 L 48 L 50 L Respiratory Rate 22 H 18 14 Blood Pressure 122/77 119/90 134/93 H Pulse Oximetry 100 100 100 Oxygen Delivery Room Air Oxygen Flow Rate 02/05/22 21:03 02/05/22 22:30 02/06/22 06:47 Temperature 98.5 F 97.5 F L Pulse Rate 71 61 Respiratory Rate 20 20 Blood Pressure 132/68 116/83 Pulse Oximetry 99 100 Oxygen Delivery Room Air Oxygen Flow Rate Intake/Output Intake/Output: Intake & Output 02/03/22 02/04/22 02/05/22 02/06/22 23:59 23:59 23:59 23:59 Intake Total 1050 3110 2410 1200 Balance 1050 3110 2410 1200 Meds/Results Medications: Active Medications Generic Name Dose Route Start Last Admin Trade Name Freq PRN Reason Stop Dose Admin Acetaminophen 650 mg 02/04/22 14:15 Acetaminophen 325 Mg Tablet PO Q4H PRN pain 1-3 Hydromorphone HCl 0.5 mg 02/03/22 19:17 Hydromorphone Hcl Inj (*Crx) 1 Mg/Ml Syr IV PUSH Q4H PRN Pain Rated 7-10 Sodium Chloride 1,000 mls @ 65 mls/hr 02/03/22 19:20 02/06/22 07:49 Normal Saline Iv IV CONT 65 mls/hr .[id number] MAYDA Administration Piperacillin/Tazobactam/Dextrose 3.375 gm in 50 mls @ 100 mls/hr 02/03/22 21:00 02/06/22 03:21 Zosyn 3.375 Gm/D5w 50ml Pm IVPB 100 mls/hr Q6H MAYDA Administration Ondansetron HCl 4 mg 02/03/22 19:17 Ondansetron Inj 4 Mg/2 Ml Vial IV PUSH Q4H PRN Nausea Pantoprazole Sodium 40 mg 02/04/22 09:00 02/05/22 08:24 Pantoprazole Sodium Iv 40 Mg Vial IV PUSH 40 mg QAM MAYDA Administration Tramadol HCl 50 mg 02/04/22 14:15 Tramadol Hcl (*Crx) 50 Mg Tablet PO Q6H PRN Pain Rated 4-6 Radiology Results: ITS Impressions Abdomen/Pelvis CT
[2022-02-06] MEDS: PANTOPRAZOLE SODIUM IV 40 MG VIAL IV PUSH (07:59)
[2022-02-06 08:56] VITALS: O2SAT 98
--- NOTE | 2022-02-06 10:26 | WPDANESPN ---
Anes - Prog Note Post-Op Date/Time: 02/06/22 08:59 Cardiovascular status: normal Respiratory status: normal Airway patency: baseline Mental status: baseline Post-Op hydration status: normal Vital Signs: Last Vital Signs Temp 97.5 F L 02/06/22 06:47 Pulse 61 02/06/22 06:47 Resp 20 02/06/22 06:47 BP 116/83 02/06/22 06:47 Pulse Ox 98 02/06/22 08:56 O2 Del Method Room Air 02/06/22 08:56 O2 Flow Rate 4 02/05/22 11:55 Pain Score (VAS): 0 I/O: Intake & Output 02/05/22 02/06/22 02/06/22 23:59 07:59 15:59 Intake Total 790 1250 290 Balance 790 1250 290 Laboratory Tests 02/06/22 05:28 02/06/22 05:28 02/06/22 02/06/22 05:28 05:28 WBC 12.2 H RBC 4.63 Hgb 12.2 L Hct 33.8 L MCV 73.0 L MCH 26.3 MCHC 36.1 H RDW 15.8 H Plt Count 225 MPV 11.8 H Sodium 140 Potassium 3.8 Chloride 102 Carbon Dioxide 25 Anion Gap 13 BUN 4 L Creatinine 1.00 Estim Creat Clear Calc 85 Estimated GFR > 60 Glucose 89 Calcium 8.7 Total Bilirubin 1.7 H AST 31 ALT 17 Alkaline Phosphatase 70 Total Protein 7.0 Albumin 3.9 Patient Feedback: Patient satisfied with anesthetic care.
--- NOTE | 2022-02-06 11:07 | PM.DS ---
DS: Admitting Diagnosis Discharge Date 02/06/2022 Admitting Diagnosis choledocholithiasis DS: Discharge Diagnosis Discharge Diagnosis (1) Abdominal pain: Code(s): R10.9 - Unspecified abdominal pain Status: Acute Assessment and Plan: Secondary to findings of choledocholithiasis, cholecystitis, and esophagitis/gastritis noted on CT. Abdominal pain resolved. Supportive care provided. Additional plan as detailed below (2) Choledocholithiasis: Code(s): K80.50 - Calculus of bile duct without cholangitis or cholecystitis without obstruction Status: Acute Assessment and Plan: Choledocholithiasis with mild intrahepatic biliary duct dilatation noted on imaging though no significant extrahepatic biliary duct dilatation was seen. LFTs within normal limits. Mild elevation of total bilirubin. Seen in consultation by general surgery and gastroenterology. ERCP completed on 02/05 with sphincterotomy and balloon sweep with no stones retrieved. Further plan as below. (3) Acute cholecystitis: Code(s): K81.0 - Acute cholecystitis Status: Acute Assessment and Plan: CT of the abdomen/pelvis showed gallbladder wall edema and findings consistent of acute cholecystitis. Appreciate general surgery consultation. Received IV Zosyn during admission. Patient was able to tolerate a low-fat diet which he will continue. He will follow up outpatient for interval cholecystectomy. He will have repeat labs done as an outpatient on 02/07/2022 to evaluate LFTs and lipase. Following that surgery will be scheduled. (4) Gastritis: Code(s): K29.70 - Gastritis, unspecified, without bleeding Status: Acute Assessment and Plan: Mild gastritis/esophagitis noted on CT. Continue Protonix. (5) Sickle cell disease: Code(s): D57.1 - Sickle-cell disease without crisis Status: Acute Assessment and Plan: No acute issues. Continue with regularly scheduled outpatient hematology follow-up DS: Summary Hospital Course Hospital Course: date of admission: 02/03/2022 date of discharge: 02/06/2022 Nicole Alegria is a 21-year-old male with a history of sickle cell disease who presented to the emergency department on 02/03/2022 with complaints of epigastric pain. on presentation to the ED, his vital signs were stable, CBC and BMP unremarkable, total bilirubin 2.4, AST 90, ALT and ALP within normal limits, lipase 241, CT of the abdomen/pelvis showed choledocholithiasis with mild intrahepatic biliary duct dilation without significant extrahepatic biliary duct dilation and mild gallbladder wall edema. he was admitted to the hospitalist service for further evaluation and management was seen in consultation by Gastroenterology and General surgery. Please see above for further details. He underwent ERCP on 02/05/2022 with no stones evident in the common bile duct. He was able to slowly advance to a low-fat diet and tolerated this well. He will obtain follow-up labs on 02/07/2022 to evaluate liver enzymes and lipase. He will then schedule outpatient laparoscopic cholecystectomy with Dr. Dickinson. patient and family agreeable to this plan. Patient's pain remained very well controlled. He will remain on a low-fat diet. As he was very eager for discharge home. Given overall improvement, he was determined to no longer require inpatient care and was discharged in hemodynamically stable condition on 02/06/2022. General surgery and Gastroenterology in agreement with discharge plans. Discussed with the patient and his family worrisome signs and symptoms for which to return. Status at Discharge Functional status at discharge: independent ambulation Overall status at discharge: patient is back to baseline Time Spent with Patient Time attestation: Total time spent providing and/or coordinating discharge services: 43 minutes Time spent: Greater than 30 minutes Exam Narrative
== END 2022-02-06 11:25 | disposition home or self-care (01) ==
LOC: ANHED 18:17 → ANH3MEDSUR 19:43
PROVIDERS: Emergency Medicine; Internal Medicine Gastroenterology; Physician Assistant; Admitting Provider Internal Medicine; Emergency Provider Emergency Medicine; Visit Provider Internal Medicine
PROC: (CPT 43260; principal; 2022-02-05 12:30)
DX: K80.42 Calculus of bile duct with acute cholecystitis without obstruction (principal); K29.70 Gastritis, unspecified, without bleeding; D57.1 Sickle-cell disease without crisis; R93.3 Abnormal findings on diagnostic imaging of other parts of digestive tract; R94.5 Abnormal results of liver function studies; F12.90 Cannabis use, unspecified, uncomplicated
CPT/HCPCS: 43262; 36415; 74177; 74329; 80053; 80307; 81003; 83690; 83735; 85025; 85027; 85046; 85610; 96361; 96365; 96374; 96375; 99285; C9113; G0378; J1170; J2001; J2405; J2543; J2704; J7030; J7120; Q9967

== ENCOUNTER 2022-02-19 15:48 | Outpatient (CLI) | payer OTHER, SELFPAY ==
[2022-02-19 16:39] LABS: Amylase 164 U/L (30-110)
== END 2022-02-19 15:49 | disposition home or self-care (01) ==
LOC: ANHLAB 15:51
PROVIDERS: Visit Provider Surgery
DX: Z01.812 Encounter for preprocedural laboratory examination (principal); K80.10 Calculus of gallbladder with chronic cholecystitis without obstruction
CPT/HCPCS: 36415; 82150; 86850; 86900; 86901

== ENCOUNTER 2022-02-20 00:44 | Day surgery (SDC) | payer OTHER, SELFPAY ==
--- NOTE | 2022-02-13 17:25 | PC.NURSE ---
Report to the Outpatient Waiting Room, entrance under the green pavilion located off [facility], at time 1000 on date 02/20/22. OR Time: 1200. Time changes happen often and if your time is changed the preop area will call you the afternoon before. - You and your visitor will be asked to self-screen and do not enter if you have any COVID symptoms. - Only one visitor and NO children visitors are allowed at this time. - The patient visitor is requested to leave or wait in car when not with patient due to restrictions. - A mask is required within the hospital. Patients may have clear liquids (water, carbonated beverages, clear teas, apple juice) until 3 hours prior to surgery with a maximum of 20 ounces 0900. - No food from midnight until time of surgery - Infants may have breast milk until 4 hours before surgery, infant formula 6 hours prior to surgery. - Children will be allowed to drink immediately following surgery. If applicable, please bring a bottle or sippy cup to assist with drinking. Juice, water, soda, and popsicles are readily available. For infants on formula, please bring formula the day of surgery. Pacifiers are allowed. Take the following medications with a SIP of water the morning of surgery: NONE Medications to discontinue per physician Vitamins and Supplements Date to take last dose 02/17/2022 Please no make-up, nail lao, hairspray, perfume, deodorant, or body powder the day of surgery. No jewelry (including any body piercings) or valuables the day of surgery, leave them at home. Please take a shower or bath the night before, or the morning of, surgery with an antibacterial soap *hibiclens*. Wear comfortable, loose fitting clothing. Children are encouraged to wear pajamas. - Jewelry must be removed prior to entering the operating room. Rings and piercings that are not removed may be cut off. - The hospital will not accept responsibility for valuables. - Please leave all valuables, including medications, at home the day of surgery. If you are going home after surgery, a licensed stock driver must drive you home. - NO public transportation without another adult. - We recommend that an adult stay with you for 24 hours following discharge. - We also recommend that you do not drive, make important decision, drink alcoholic beverages, or take any drugs that were not prescribed by your health care provider for at least 24 hours after your discharge time. For Pediatric surgeries, we recommend two adults accompany the child home (only one inside the building at this time). Follow any additional instructions given to you from your surgeon. If you or anyone in your household have experienced Covid symptoms in the past week, please notify your surgeon or the nurse liaison at the phone number below for possible testing. Telephone instructions given to Nicole Alegria Jr. and asked if any additional questions and then verbalized understanding. Patient advised to call surgeon office or pre surgery nurse liaison [phone] if any additional questions.
[2022-02-13 17:39] VITALS: BMI 19.3
--- NOTE | 2022-02-19 11:59 | P.PNAN_ITS ---
Anes - Initial Pre Proc Eval Procedure: Operation Date: 02/20/22 12:00 Proposed Procedures p Laparoscopic Cholecystectomy - Daniela Dickinson MD Date/Time: 02/19/22 11:59 Surgeon: Daniela Dickinson MD Pre Op Diagnosis: cholecystitis, choledocolithiasis Patient Data Age: 21 Gender: M Height: 1.69 m Weight: 55 kg Allergies Allergy/AdvReac Type Severity Reaction Status Date / Time No Known Allergies Allergy Verified 02/20/22 10:46 Home Medications Medication Instructions Recorded Confirmed Type folic acid 20 mg capsule 20 mg PO DAILY 02/20/22 02/20/22 History Patient hx anesthesia problems: none Family hx anesthesia problems: none Results Review: All pre-operative results and documents have been reviewed as part of the pre- operative evaluation. [facility] Past Medical History Medical History Sickle cell disease Surgical History Surgical History Hx of tonsillectomy Family History Family History Other Sickle cell anemia Social History Social History Social History: Surrogate medical decision maker: Nicole Alegria Sr. Code status: Full code. Smoking status: Never smoker Second hand tobacco smoke exposure: No Alcohol intake: never Substance use: current Substance use type: marijuana Other substance usage details: uses marijuana every other day Last use: 02/10/2022 Living arrangements: with family Additional living arrangements comments: Currently living with his dad in [place]. Additional occupation/education comments: Works at [employer] Spiritual care concerns: No Anes - Eval Final PreProcedure Day of Procedure 02/19/22 11:59 Patient weight: normal Heart: regular rate and rhythm Lungs: clear to auscultation Airway: Mallampati scale class II Neurological: alert and oriented Last oral intake: >/= 8 hours ASA classification: III Emergent: no Anesthesia type and monitoring: general ETT and standard monitoring Results Review: All pre-operative results and documents have been reviewed as part of the pre- operative evaluation. Informed Consent: The patient's anesthetic plan and its attendant risks and benefits were discussed with the patient/family/POA. Questions were solicited and answers provided to the satisfaction of the patient/family/POA.
[2022-02-20] VITALS (12 sets, daily range): BP systolic 97–123; BP diastolic 47–72; PULSE 57–76; RESP 12–16; TEMP 36.8–37.2; O2SAT 99–100
--- NOTE | 2022-02-20 10:49 | WPDHPUPDATE1 ---
History and Physical Update Update Date/Time: 02/20/22 10:49 History and Physical has been reviewed, including an updated exam of the patient. There are NO changes in the patient's condition. Risks, benefits, and alternatives have been discussed and questions answered. Patient agrees to proceed with procedure.
[2022-02-20] MEDS: ACETAMINOPHEN 500 MG TABLET 1000 MG PO (10:51)
[2022-02-20] MEDS: LACTATED RINGERS 1,000 ML 30 ML IV CONT ×2 (11:12→12:47)
[2022-02-20] MEDS: KETOROLAC 15 MG/ML VIAL (*BKC) IV PUSH (11:13)
[2022-02-20] MEDS: ceFAZolin 2 GM/D5W 50 ML 2 GM/50 ML BAG IVPB (11:52)
[2022-02-20] MEDS: BUPIVACAINE/EPINEPHRINE 0.25% 50 ML VIAL 30 ML INFILTRATE (12:20)
--- NOTE | 2022-02-20 12:50 | W.PM.PROC2 ---
Procedure Note - Detailed Date of Procedure 02/20/22 Pre-op Diagnosis cholecystitis, choledocolithiasis Post-op Diagnosis Same Procedure Performed Laparoscopic cholecystectomy Surgeon Daniela Dickinson MD Anesthesia General Indications 21 y/o M recently admitted for cholecystitis, choledocholithiasis. Pt had ERCP in hospital and now setup for interval cholecystectomy. Findings Cholecystitis with cholelithiasis Description of Procedure The patient was taken to the operating room placed in the supine position. After adequate induction of general anesthesia, the patient was prepped and draped in normal sterile fashion. A time-out was then performed to verify the patient's identity as well as the procedure being performed. I then made a 5 mm incision in the infraumbilical region. Through this, a Veress needle was placed into the peritoneal cavity and CO2 gas was then insufflated. After adequate pneumoperitoneum was achieved, the Veress needle was removed and a 5 mm optiview trocar was placed through this incision under direct visualization. I then placed the laparoscope through this trocar site and under direct visualization placed a further 12 mm subxiphoid port as well as 2 additional 5 mm ports in the right upper abdomen. The gallbladder was then identified and was noted to be moderately inflamed, distended, and full of gallstones. I was able to place a grasper at the dome of the gallbladder and this was retracted anterior and cephalad up over the liver. A 2nd retractor was then placed at the infundibulum and retracted laterally, this allowed visualization of the triangle of Calot. I then was able to visualize the cystic duct in its entirety from its proximal insertion into the gallbladder, to its distal junction with the common hepatic/common bile duct junction. At this point, I carefully skeletonized the proximal cystic duct with the [place] dissector. I then clipped and transected the proximal cystic duct. Next I visualized the cystic artery. Again the artery was skeletonized, clipped, and transected. I then used the Bovie cautery to take down the peritoneal attachments of the gallbladder off the liver bed. Once the gallbladder specimen was completely detached, an endo-pouch was placed through the 12 mm port site. I then placed the gallbladder specimen into the Endo pouch and removed the endo-pouch from the 12 mm port site. The specimen will now be sent to pathology for further review. I then copiously irrigated the right upper quadrant. Hemostasis was noted in the liver bed, the clips were noted to be in good position on both the cystic duct stump and the cystic artery stump. No other pathology was noted in the right upper quadrant. I then moved the laparoscope to the subxiphoid port. No iatrogenic injury or other pathology was noted in the lower abdomen. I then closed the 12 mm trocar site under direct visualization using the Brandyn cone and 0 Vicryl suture. At this point, the abdomen was desufflated and all ports removed. All port sites were then closed with 4.O Monocryl subcuticular sutures. Dermabond was placed on each incision. The patient tolerated the procedure well, was extubated in the operating room postoperative and will be transferred to the recovery room in stable condition Estimated Blood Loss 5 Drains No Packing No Pathology Yes Complications No immediate complications Condition Stable Disposition PACU [facility] Billing Surgery - Charge Forward: Surgery Billing
[2022-02-20] MEDS: oxyCODONE HCL (*CRX) 5 MG TAB IR PO (14:02)
[2022-02-20] MEDS: fentaNYL CITRATE INJ (*CRX) 100 MCG/2 ML VIAL 25 MCG IV PUSH ×2 (14:39→14:52)
[2022-02-20] MEDS: ONDANSETRON INJ 4 MG/2 ML VIAL IV PUSH (14:39)
== END 2022-02-20 15:30 | disposition home or self-care (01) ==
PROVIDERS: Visit Provider Surgery
PROC: 0FT44ZZ Resection of Gallbladder, Percutaneous Endoscopic Approach (ICD-10-PCS; CPT 47562; principal; 2022-02-20 12:00)
DX: K80.10 Calculus of gallbladder with chronic cholecystitis without obstruction (principal); D57.1 Sickle-cell disease without crisis; F12.90 Cannabis use, unspecified, uncomplicated
CPT/HCPCS: 47562; 36415; 82150; 86850; 86900; 86901; 88304; A9270; J0690; J1100; J1885; J2250; J2405; J2704; J2710; J3010; J7120

== ENCOUNTER 2022-04-27 12:10 | Emergency (ER) | payer OTHER, SELFPAY ==
[2022-04-27 12:14] VITALS: BP 128/78; PULSE 81; RESP 16; TEMP 36.4; O2SAT 100
--- NOTE | 2022-04-27 12:20 | ED.MALEGU ---
HPI - Male Genitourinary General Chief complaint: Urogenital-Male Stated complaint: STD check Time Seen by Provider: 04/27/22 12:16 Source: patient History of Present Illness HPI Narrative: 21 years old male presents with burning urination started few weeks ago, last sexual intercourse over 1 month ago with a partner who told him that she tested positive for trichomoniasis. Patient had antibiotic at that time without improvement. Patient was seen at [facility] emergency room twice and was told that he have no STD at that time. Patient came to us with the same symptoms of burning urination, no discharge, no fever or chills or nausea or vomiting. Related Data Home Medications Medication Instructions Recorded Confirmed No Home Medications 03/06/22 03/06/22 Allergies Allergy/AdvReac Type Severity Reaction Status Date / Time No Known Allergies Allergy Verified 04/27/22 12:29 Review of Systems Review of Systems: All systems reviewed & are unremarkable except as noted in HPI and below PMFSH Past Medical History Medical History Sickle cell disease Surgical History Surgical History Hx laparoscopic cholecystectomy 02/20/22 Hx of tonsillectomy Family History Family History Other Sickle cell anemia Social History Social History Social History: Surrogate medical decision maker: Nicole Alegria Sr. Code status: Full code. Smoking status: Never smoker Second hand tobacco smoke exposure: No Alcohol intake: never Substance use: current Substance use type: marijuana Other substance usage details: uses marijuana every other day Last use: 02/10/2022 Additional living arrangements comments: Currently living with his dad in [place]. Additional occupation/education comments: Works at [employer] Spiritual care concerns: No Exam Narrative: General appearance: Well-developed, well-nourished Skin: Normal color Head: Normocephalic, nontraumatic Eyes: Clear conjunctiva ENT: Oropharynx normal, ears normal, nose normal Neck: Supple, nontender Chest and respiratory: Airway patent, no respiratory distress, no accessory muscle use Heart: Regular rate/rhythm Abdomen: Soft, nontender, no organomegaly, quiet bowel sounds Vascular: Normal peripheral pulses, normal capillary refill. 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 I plan to give patient Rocephin have gram IM and azithromycin 1 g p.o. to cover the possibility of chlamydia and gonorrhea. And discharge him on metronidazole for 7 days to cover the possibility of trichomonas Vital Signs Vital signs: Vital Signs Temperature 36.4 C 04/27/22 12:14 Pulse Rate 81 04/27/22 12:14 Respiratory Rate 16 04/27/22 12:14 Blood Pressure 128/78 04/27/22 12:14 Pulse Oximetry 100 04/27/22 12:14 Oxygen Delivery Room Air 04/27/22 12:14 Temperature 36.4 C 04/27/22 12:14 Pulse Rate 81 04/27/22 12:14 Respiratory Rate 16 04/27/22 12:14 Blood Pressure 128/78 04/27/22 12:14 Pulse Oximetry 100 04/27/22 12:14 Oxygen Delivery Room Air 04/27/22 12:14 MDM - Male Genitourinary Differential Diagnosis Differential diagnosis: Likely urinary tract infection, urethritis and other (STD) Lab Data Labs: Lab Results 04/27/22 Range/Units 13:00 C.trachomatis RNA (TMA) Pendi
[2022-04-27] MEDS: AZITHROMYCIN 250 MG TABLET 1000 MG PO (13:56)
[2022-04-27] MEDS: cefTRIAXone 1 GM VIAL 0.5 GM IM (13:56)
[2022-04-27] MEDS: LIDOCAINE HCL 1% LOCAL INJ 20 ML VIAL (13:57)
== END 2022-04-27 15:30 | disposition home or self-care (01) ==
PROVIDERS: Emergency Provider Emergency Medicine
DX: N34.2 Other urethritis (principal); D57.1 Sickle-cell disease without crisis
CPT/HCPCS: 87491; 87591; 96372; 99283; A9270; J0696

== ENCOUNTER 2022-10-22 15:29 | Emergency (ER) | payer SELFPAY ==
[2022-10-22 15:46] VITALS: BP 123/76; PULSE 71; RESP 16; TEMP 36.9; O2SAT 99
[2022-10-22 17:30] VITALS: BP 120/76; PULSE 65; RESP 16; O2SAT 100
[2022-10-22] MEDS: LIDOCAINE HCL 1% LOCAL INJ 10 ML VIAL (18:24)
[2022-10-22] MEDS: cefTRIAXone 1 GM VIAL (18:24)
--- NOTE | 2022-10-22 18:24 | PC.NURSE ---
see paper charting for orders
--- NOTE | 2022-10-22 18:32 | ED.GENADULT ---
HPI - General Adult General Chief complaint: Urogenital-Male Stated complaint: increased urination Time Seen by Provider: 10/22/22 18:22 Source: patient Mode of arrival: ambulatory Limitations: no limitations History of Present Illness HPI narrative: This is a 21-year-old male who presents to the ED with chief complaint of penile discharge and pain for 3 weeks. Patient states he was seen here originally for this and given Flagyl for possible trichomonas. He has not received any other antibiotics. Was tested at [facility] and had negative test. He is coming today for continued symptoms. Denies any abdominal pain, testicle pain, fevers, chills, vomiting. Related Data Home Medications Medication Instructions Recorded Confirmed No Home Medications 03/06/22 03/06/22 Allergies Allergy/AdvReac Type Severity Reaction Status Date / Time No Known Allergies Allergy Verified 04/27/22 12:29 Review of Systems Review of Systems: CONSTITUTIONAL: Denies fever, chills, or sweats. EYES: Denies visual changes, redness, or discharge. ENT: Denies rhinorrhea, congestion, sore throat, or otalgia. CARDIOVASCULAR: Denies chest pain, palpitations, or edema. RESPIRATORY: Denies cough or dyspnea. GASTROINTESTINAL: Denies abdominal pain, nausea, vomiting, or diarrhea. GENITOURINARY: See HPI SKIN: Denies rash or itching. MUSCULOSKELETAL: Denies back pain, joint pain, or myalgia. NEUROLOGIC: Denies headache, numbness, dizziness, or weakness. PSYCHIATRIC: Denies anxiety or depression. [facility] Past Medical History Medical History Sickle cell disease Surgical History Surgical History Hx laparoscopic cholecystectomy 02/20/22 Hx of tonsillectomy Family History Family History Other Sickle cell anemia Social History Social History Social History: Surrogate medical decision maker: Nicole Alegria Sr. Code status: Full code. Smoking status: Never smoker Second hand tobacco smoke exposure: No Alcohol intake: never Substance use: current Substance use type: marijuana Other substance usage details: uses marijuana every other day Last use: 02/10/2022 Living arrangements: with family Additional living arrangements comments: Currently living with his dad in [place]. Additional occupation/education comments: Works at [employer] Spiritual care concerns: No Exam Narrative: GENERAL: Well-appearing, well-nourished, and in no acute distress. HEAD: Normocephalic, atraumatic. EYES: PERRLA and EOMI. ENT: Nares clear, no rhinorrhea or epistaxis. Mucous membranes moist. Oropharynx without tonsillar hypertrophy exudate or other lesions. NECK: Supple. No adenopathy or masses. CHEST: No respiratory distress. Clear to auscultation. No wheezes rales or rhonchi HEART: Regular rate and rhythm. No murmur heard. Normal peripheral pulses. ABDOMEN: Soft, nontender, nondistended, normal active bowel sounds. : No testicular swelling or tenderness. No discharge visualized. MSK: Normal range of motion. No edema. SKIN: Warm, dry, no rash. NEURO: Alert and oriented x3. No focal deficits. PSYCH: Normal mood and affect. Course Vital Signs Vital signs: Vital Signs Temperature 98.5 F 10/22/22 15:46 Pulse Rate 71 10/22/22 15:46 Respiratory Rate 16 10/22/22 15:46 Blood Pressure 123/76 10/22/22 15:46 Pulse Oximetry 99 10/22/22 15:46 Oxygen Delivery Room Air 10/22/22 15:46 Temperature 98.5 F 10/22/22 15:46 Pulse Rate 71 10/22/22 15:46 Respiratory Rate 16 10/22/22 15:46 Blood Pressure 123/76 10/22/22 15:46 Pulse Oximetry 99 10/22/22 15:46 Oxygen Delivery Room Air 10/22/22 15:46 Medical Decision Making MDM Narrative Medical decision making narrative: T
== END 2022-10-22 18:33 | disposition home or self-care (01) ==
PROVIDERS: Emergency Provider Physician Assistant
DX: Z20.2 Contact with and (suspected) exposure to infections with a predominantly sexual mode of transmission (principal); D57.1 Sickle-cell disease without crisis
CPT/HCPCS: 87491; 87591; 96372; 99283; J0696

== ENCOUNTER 2024-06-01 14:06 | Emergency (ER) | payer OTHER, BC, SELFPAY ==
--- NOTE | ~2024-06-01 | CT_ITS ---
EXAMINATION: CT abdomen pelvis w con DATE: 06/01/2024 21:46 INDICATION: RLQ pain, penile discharge TECHNIQUE: Computed tomography (CT) of the abdomen and pelvis was performed with 100 mL Omnipaque-350 intravenous contrast. Automated exposure control and iterative reconstruction technique were employe d. The dose-length product was 189.84 mGy-cm. COMPARISON: 02/03/2022. FINDINGS: Lower thorax: Unremarkable Liver: Normal. Biliary/Gallbladder: Gallbladder is absent. No bile duct dilation. Pancreas: No mass or duct dilation. Spleen: Normal. Adrenals:No mass. Kidneys: No suspicious mass, obstructing stone, or hydronephrosis. GI tract: Mild distal esophageal and gastric wall edema. No small or large bowel dilation. Normal emily endix. Mesentery/Peritoneum: No ascites, mass, or free air. Retroperitoneum: No mass. Pelvis: Pelvic organs are within normal limits. Soft Tissues: Enlarged bilateral inguinal lymph nodes. Bones: No acute osseous finding. Skeletal changes of sickle cell anemia. IMPRESSION: Mild esophagitis/gastritis. Bilateral inguinal lymphadenopathy. Reviewed, dictated and finalized at location [facility]
[2024-06-01 14:09] VITALS: BP 147/89; PULSE 85; RESP 16; TEMP 36.6; O2SAT 99
--- NOTE | 2024-06-01 14:22 | ED_ITS ---
HPI - Abdominal Pain General Chief Complaint: Abdominal Pain <Elba Carpenter PA-C - Last Filed: 06/01/24 14:23> Stated Complaint: abd pain for over a week <Elba Carpenter PA-C - Last Filed: 06/01/24 14:23> Time Seen by Provider: 06/01/24 20:45 <Elba Carpenter PA-C - Last Filed: 06/01/24 14:23> Focused HPI: 23-year-old male with reported history of sickle cell presents to the emergency department for epigastric abdominal pain for the past several weeks. Describes this pain as a cramping sensation. No aggravating or alleviating factors. He is also reporting penile discharge and admits to a condom breaking a couple weeks ago. States he has had 3 sexual partners in the past 6 months. Reports some stinging when he urinates and drainage. No testicular pain. Denies fevers, nausea vomiting. Denies chest pain or shortness of breath. States he does not feel like he is in his sickle cell crisis. GENERAL: Well-appearing, well-nourished, and in no acute distress. HEAD: Normocephalic, atraumatic. CHEST: Clear to auscultation. ?No respiratory distress. ABDOMEN: Abdomen soft, nondistended. No rebound or rigidity. No tenderness. HEART: Regular rate and rhythm.? NEURO: ?Alert and oriented x3. Patient screened in triage and initial orders placed.? ?Additional care and disposition to be based upon?diagnostic testing and treatment. <Elba Carpenter PA-C - Last Filed: 06/01/24 14:23> Source: patient <Booker Holliday PA-C - Last Filed: 06/01/24 23:46> Mode of arrival: ambulatory <ERNESTINE Hernandez Last Filed: 06/01/24 23:46> Limitations: no limitations <Booker Holliday PA-C - Last Filed: 06/01/24 23:46> History of Present Illness HPI narrative: Agree with triage note above <ERNESTINE Hernandez Last Filed: 06/01/24 23:46> Related Data Allergies/Adverse Reactions: Allergies Allergy/AdvReac Type Severity Reaction Status Date / Time No Known Allergies Allergy Verified 06/01/24 14:07 <Elba Carpenter PA-C - Last Filed: 06/01/24 14:23> [facility] Past Medical History Medical History: Medical History Sickle cell disease <Elba Carpenter PA-C - Last Filed: 06/01/24 14:23> Surgical History Surgical History: Surgical History Hx laparoscopic cholecystectomy 02/20/22 Hx of tonsillectomy <Elba Carpenter PA-C - Last Filed: 06/01/24 14:23> Family History Family History: Family History Other Sickle cell anemia <Elba Carpenter PA-C - Last Filed: 06/01/24 14:23> Social History Social History: Social History Social History: Surrogate medical decision maker: Nicole Alegria Sr. Code status: Full code. Smoking status: Never smoker Second hand tobacco smoke exposure: No Alcohol intake: never Substance use: current Substance use type: marijuana Other substance usage details: uses marijuana every other day Last use: 02/10/2022 Living arrangements: with family Additional living arrangements comments: Currently living with his dad in [place]. Additional occupation/education comments: Works at [employer] Spiritual care concerns: No <Elba Carpenter PA-C - Last Filed: 06/01/24 14:23> Exam 2 Narrative: GENERAL: Well-appearing, well-nourished, and in no acute distress. HEAD: Normocephalic, atraumatic. EYES: PERRLA and EOMI. ENT: Nares clear, no rhinorrhea or epistaxis. Mucous membranes moist. Oropharynx without tonsillar hypertrophy exudate or other lesions. NECK: Supple. No adenopathy or masses. CHEST: No respiratory distress. Clear to auscultation. No wheezes rales or rhonchi HEART: Regular rate and rhythm. No murmur heard. Normal peripheral pulses. ABDOMEN: Mild epigastric tenderness. Soft, otherwise nontender, nondistended, normal active bowel sounds. MSK: Normal range of motion. No edema. SKIN: Warm, dry, no rash. NEURO: Alert and oriented x4. No focal deficits. PSYCH: Normal mood and affect. <Booker Holliday PA-C - Last Filed: 06/01/24 23:46> Course Vital Signs Vital signs: Vital Signs Temperature 97.8 F 06/01/24 14:09 Pulse Rate 85 06/01/24 14:09 Respiratory Rate 16 06/01/24 14:09 Blood Pressure 147/89 H 06/01/24 14:09 Pulse Oximetry 99 06/01/24 14:09 Temperature 97.8 F 06/01/24 14:09 Pulse Rate 86 06/01/24 23:04 Respiratory Rate 15 06/01/24 23:04 Blood Pressure 124/78 06/01/24 23:04 Pulse Oximetry 97 06/01/24 23:04 <Ebla Carpenter PA-C - Last Filed: 06/01/24 14:23> Vital Signs Temperature 97.8 F 06/01/24 14:09 Pulse Rate 85 06/01/24 14:09 Respiratory Rate 16 06/01/24 14:09 Blood Pressure 147/89 H 06/01/24 14:09 Pulse Oximetry 99 06/01/24 14:09 Temperature 97.8 F 06/01/24 14:09 Pulse Rate 86 06/01/24 23:04 Respiratory Rate 15 06/01/24 23:04 Blood Pressure 124/78 06/01/24 23:04 Pulse Oximetry 97 06/01/24 23:04 <Booker Holliday PA-C - Last Filed: 06/01/24 23:46> MDM - Abdominal Pain MDM Narrative Medical decision making narrative: This is a 23-year-old male who presents to the ED for abdominal pain, groin itching and yellow penile discharge. Lab work shows normal white count on CBC. CMP unremarkable aside from slightly elevated total bilirubin. Urinalysis does show 2+ the leukocyte esterase, urine white blood cells 21-50. Culture pending CT abdomen pelvis with IV contrast: IMPRESSION: Mild esophagitis/gastritis. Bilateral inguinal lymphadenopathy. STD panel including HIV and syphilis are all negative. Patient was treated empirically few weeks ago. Will repeat empiric treatment but emphasized the importance of following up with primary care on this issue. Previously healing received 1 time dose of azithromycin and Flagyl. Also discussed treatment of his mom likely gastritis on exam today. Ceftriaxone given here. Rx for doxycycline and Flagyl given. Patient will be discharged in stable condition. Supportive measures discussed and return precautions given. Patient is understanding and agreeable with plan for discharge with PCP follow-up. <Booker Holliday PA-C - Last Filed: 06/01/24 23:46> Lab Data Result diagrams: 06/01/24 15:14 06/01/24 15:14 <Elba Carpenter PA-C - Last Filed: 06/01/24 14:23> Labs: Lab Results 06/01/24 06/01/24 Range/Units 15:14 21:32 WBC 6.3 (4.5-10.0) K/mm3 RBC 5.07 (4.6-6.20) M/mm3 Hgb 13.7 L (14.0-18.0) g/dL Hct 37.9 L (42.0-52.0) % MCV 74.8 L (80-100) fl MCH 27.0 (26-34) pg MCHC 36.1 H (32-36) g/dl RDW 16.4 H (11.5-14.5) % Plt Count 263 (150-375) k/mm3 MPV 11.3 H (7.4-10.4) fl Immature Gran % (Auto) 0.5 (0-0.5) % Neut % (Auto) 57.5 (45.5-73.1) % Lymph % (Auto) 27.5 (18.3-44.2) % [place] % (Auto) 12.6 H (2.6-8.5) % Eos % (Auto) 0.6 (0-4.4) % Baso % (Auto) 1.3 H (0.2-1.2) % Lymph # (Auto) 1.72 (0.9-3.2) K/mm3 Gibson # (Auto) 0.8 H (0.1-0.6) K/mm3 Eos # (Auto) 0.0 (0-0.3) K/mm3 Baso # (Auto) 0.1 (0.0-0.1) K/mm3 Abs Immat Gran (auto) 0.03 (0.00-0.031) K/mm3 Absolute Neuts (auto) 3.6 (1.3-6.7) K/mm3 Absolute Nucleated RBC 0.170 H (0.0-0.012) K/mm3 Nucleated RBC % 2.7 H (0.0-0.2) % Platelet Estimate Adequate (Adequate) Poikilocytosis 1+ Anisocytosis 1+ Sickle Cells 1+ Target Cells 2+ Ovalocytes 1+ Schistocytes None seen Sodium 140 (137-145) mmol/L Potassium 4.0 (3.4-5.0) mmol/L Chloride 108 H (98-107) mmol/L Carbon Dioxide 27 (22-30) mmol/L Anion Gap 5 (4-12) mmol/L BUN 9 D (9-20) mg/dL Creatinine 0.80 (0.7-1.3) mg/dL Estim Creat Clear Calc 97 ml/min Estimated GFR > 60 (59 - ) Glucose 127 H (65-110) mg/dL Calcium 9.8 (8.4-10.2) mg/dL Total Bilirubin 2.3 H (0.2-1.3) mg/dL AST 38 (17-59) U/L ALT 18 (6-50) U/L Alkaline Phosphatase 65 (38-126) U/L Total Protein 8.0 (6.3-8.2) g/dL Albumin 4.8 (3.5-5.1) g/dL Lipase 241 (23-300) U/L Urine Color Yellow (Yellow) Urine Appearance Clear (Clear) Urine pH 6.0 (5.0-9.0) Ur Specific [place] 1.013 (1.001-1.035) Urine Protein Negative (Negative) mg/dL Urine Glucose (UA) Negative (Negative) mg/dL Urine Ketones Negative (Negative) mg/dL Ur Blood (Man) Negative (Negative) Urine Nitrate Negative (Negative) Urine Bilirubin Negative (Negative) Urine Urobilinogen 0.2 (<2.0) mg/dL Leukocyte Esterase Rfl 2+ H (Negative) JC/UL Urine RBC 3-5 H (0-2) /hpf Urine WBC 21-50 H (0-3) /hpf Ur Squamous Epith Cells Occasional (Few) /hpf Urine Bacteria None seen /hpf Urine Casts 0-2 RPR Non-reactive (NonReactive) C. trachomatis (PCR) Not detected (NOT DETECTE) HIV 1&2 Ab/P24 Ag 4thGn Negative (Negative) N. gonorrhoeae (PCR) Not detected (NOT DETECTE) T. vaginalis (PCR) Not detected (NOT DETECTE) <Elba Carpenter PA-C - Last Filed: 06/01/24 14:23> Lab Results 06/01/24 06/01/24 Range/Units 15:14 21:32 WBC 6.3 (4.5-10.0) K/mm3 RBC 5.07 (4.6-6.20) M/mm3 Hgb 13.7 L (14.0-18.0) g/dL Hct 37.9 L (42.0-52.0) % MCV 74.8 L (80-100) fl MCH 27.0 (26-34) pg MCHC 36.1 H (32-36) g/dl RDW 16.4 H (11.5-14.5) % Plt Count 263 (150-375) k/mm3 MPV 11.3 H (7.4-10.4) fl Immature Gran % (Auto) 0.5 (0-0.5) % Neut % (Auto) 57.5 (45.5-73.1) % Lymph % (Auto) 27.5 (18.3-44.2) % Gibson % (Auto) 12.6 H (2.6-8.5) % Eos % (Auto) 0.6 (0-4.4) % Baso % (Auto) 1.3 H (0.2-1.2) % Lymph # (Auto) 1.72 (0.9-3.2) K/mm3 Gibson # (Auto) 0.8 H (0.1-0.6) K/mm3 Eos # (Auto) 0.0 (0-0.3) K/mm3 Baso # (Auto) 0.1 (0.0-0.1) K/mm3 Abs Immat Gran (auto) 0.03 (0.00-0.031) K/mm3 Absolute Neuts (auto) 3.6 (1.3-6.7) K/mm3 Absolute Nucleated RBC 0.170 H (0.0-0.012) K/mm3 Nucleated RBC % 2.7 H (0.0-0.2) % Platelet Estimate Adequate (Adequate) Poikilocytosis 1+ Anisocytosis 1+ Sickle Cells 1+ Target Cells 2+ Ovalocytes 1+ Schistocytes None seen Sodium 140 (137-145) mmol/L Potassium 4.0 (3.4-5.0) mmol/L Chloride 108 H (98-107) mmol/L Carbon Dioxide 27 (22-30) mmol/L Anion Gap 5 (4-12) mmol/L BUN 9 D (9-20) mg/dL Creatinine 0.80 (0.7-1.3) mg/dL Estim Creat Clear Calc 97 ml/min Estimated GFR > 60 (59 - ) Glucose 127 H (65-110) mg/dL Calcium 9.8 (8.4-10.2) mg/dL Total Bilirubin 2.3 H (0.2-1.3) mg/dL AST 38 (17-59) U/L ALT 18 (6-50) U/L Alkaline Phosphatase 65 (38-126) U/L Total Protein 8.0 (6.3-8.2) g/dL Albumin 4.8 (3.5-5.1) g/dL Lipase 241 (23-300) U/L Urine Color Yellow (Yellow) Urine Appearance Clear (Clear) Urine pH 6.0 (5.0-9.0) Ur Specific [place] 1.013 (1.001-1.035) Urine Protein Negative (Negative) mg/dL Urine Glucose (UA) Negative (Negative) mg/dL Urine Ketones Negative (Negative) mg/dL Ur Blood (Man) Negative (Negative) Urine Nitrate Negative (Negative) Urine Bilirubin Negative (Negative) Urine Urobilinogen 0.2 (<2.0) mg/dL Leukocyte Esterase Rfl 2+ H (Negative) JC/UL Urine RBC 3-5 H (0-2) /hpf Urine WBC 21-50 H (0-3) /hpf Ur Squamous Epith Cells Occasional (Few) /hpf Urine Bacteria None seen /hpf Urine Casts 0-2 RPR Non-reactive (NonReactive) C. trachomatis (PCR) Not detected (NOT DETECTE) HIV 1&2 Ab/P24 Ag 4thGn Negative (Negative) N. gonorrhoeae (PCR) Not detected (NOT DETECTE) T. vaginalis (PCR) Not detected (NOT DETECTE) <Booker Holliday PA-C - Last Filed: 06/01/24 23:46> Imaging Data Radiologist's impression: ITS Impressions Abdomen/Pelvis CT 06/01/24 21:49 IMPRESSION: Mild esophagitis/gastritis. Bilateral inguinal lymphadenopathy. <Elba Carpenter PA-C - Last Filed: 06/01/24 14:23> ITS Impressions Abdomen/Pelvis CT 06/01/24 21:49 IMPRESSION: Mild esophagitis/gastritis. Bilateral inguinal lymphadenopathy. <Booker Holliday PA-C - Last Filed: 06/01/24 23:46> Discharge Plan Discharge Clinical Impression: Discharge from penis, Gastritis <Elba Carpenter PA-C - Last Filed: 06/01/24 14:23> Patient Disposition: Home, Self-Care <ERNESTINE Remy Last Filed: 06/01/24 14:23> Condition: Stable <ERNESTINE Remy Last Filed: 06/01/24 14:23> Instructions: Antibiotic Form <ERNESTINE Remy Last Filed: 06/01/24 14:23> Additional Instructions: Your exam and imaging today are reassuring. There is evidence stomach information on the CT scan. Please avoid spicy foods or acidic foods to help with this. You can take [id number] Pepcid for stomach pains. The ST swabs were negative, however concerning symptoms for STD so will prescribe doxycycline and metronidazole. Please take these to the full course and follow up with primary care doctor on this issue. If you have any new or worsening symptoms please return to the ER for further evaluation. <Elba Carpenter PA-C - Last Filed: 06/01/24 14:23> Patient Language: Setswana <ERNESTINE Remy Last Filed: 06/01/24 14:23> Prescriptions: New doxycycline hyclate 100 mg capsule 100 mg PO BID 7 Days Qty: 14 0RF metronidazole 500 mg tablet 500 mg PO Q12H 7 Days Qty: 14 0RF <Elba Carpenter PA-C - Last Filed: 06/01/24 14:23> Follow-up/Referrals: PHYSICIAN NOT ON STAFF,NONSTAFF [Primary Care Provider] - Jan Parada MD [Physician] - <Elba Carpenter PA-C - Last Filed: 06/01/24 14:23> Time of Disposition: 22:52 <Elba Carpenter PA-C - Last Filed: 06/01/24 14:23> 22:52 <Booker Holliday PA-C - Last Filed: 06/01/24 23:46>
[2024-06-01] MEDS: BELLADONNA ALK/PHENOB ELIX 10 ML, MAG HYDROX/ALUMINUM HYD/SIMETH 30 ML, LIDOCAINE 2% VI... PO (15:13)
[2024-06-01 15:24] LABS: Basophils Absolute Auto 0.1 K/mm3 (0.0-0.1); Basophils Percent Auto 1.3 % (0.2-1.2); Eosinophils Percent Auto 0.6 % (0-4.4); Hematocrit 37.9 % (42.0-52.0); Hemoglobin 13.7 g/dL (14.0-18.0); Immature Granulocyte Absolute 0.03 K/mm3 (0.00-0.031); Immature Granulocyte Percent A 0.5 % (0-0.5); Lymphocytes Absolute Auto 1.72 K/mm3 (0.9-3.2); Lymphocytes Percent Auto 27.5 % (18.3-44.2); Mean Corpuscular HGB Conc 36.1 g/dl (32-36); Mean Corpuscular Volume 74.8 fl (80-100); Mean Platelet Volume 11.3 fl (7.4-10.4); Monocytes Absolute Auto 0.8 K/mm3 (0.1-0.6); Monocytes Percent Auto 12.6 % (2.6-8.5); Neutrophils Absolute Auto 3.6 K/mm3 (1.3-6.7); Neutrophils Percent Auto 57.5 % (45.5-73.1); Nucleated Red Blood Cells Perc 2.7 % (0.0-0.2); Platelet Count Result 263 k/mm3 (150-375); Red Blood Count 5.07 M/mm3 (4.6-6.20); Red Cell Distribution Width 16.4 % (11.5-14.5); White Blood Count 6.3 K/mm3 (4.5-10.0)
[2024-06-01 15:29] LABS: Add Urine Microscopic? YES; Appearance Urine Clear (Clear); Bacteria Urine None Seen /hpf; Bilirubin Urine Negative (Negative); Blood Urine Negative (Negative); Color Urine Yellow (Yellow); Glucose Urine UA Negative (Negative); Ketones Urine Negative (Negative); Leukocyte Esterase Ur 2+ LEU/UL (Negative); Nitrate Urine Negative (Negative); Non Pathogenic Casts 0-2; Protein Urine Negative (Negative); Specific Grav Ur 1.013 (1.001-1.035); Squamous Epithelial Cell Urine Occasional /hpf (Few); Urobilinogen Urine 0.2 mg/dL (<2.0); WBC Urine 21-50 /hpf (0-3)
[2024-06-01 15:37] LABS: Alanine Aminotransferase 18 U/L (6-50); Albumin Level 4.8 g/dL (3.5-5.1); Alkaline Phosphatase 65 U/L (38-126); Anion Gap 5 mmol/L (4-12); Aspartate Amino Transferase 38 U/L (17-59); Bilirubin,Total 2.3 mg/dL (0.2-1.3); Blood Urea Nitrogen 9 mg/dL (9-20); Calcium 9.8 mg/dL (8.4-10.2); Carbon Dioxide 27 mmol/L (22-30); Chloride 108 mmol/L (98-107); Estimated CRCL calculation 97 ml/min; Estimated Glomerular Filt Rate > 60; Glucose 127 mg/dL (65-110); Lipase 241 U/L (23-300); Sodium 140 mmol/L (137-145)
[2024-06-01 15:47] LABS: Anisocytosis 1+; Platelet Estimate Adequate (Adequate); Poikilocytosis 1+
[2024-06-01 15:48] LABS: Ovalocytes 1+; Schistocytes None Seen; Sickle Cells 1+; Target Cells 2+
[2024-06-01 16:43] LABS: Trichomonas Vag PCR NOT DETECTED (NOT DETECTE)
[2024-06-01 17:06] LABS: Chlamydia trachomatis NOT DETECTED (NOT DETECTE); Neisseria gonorrhoeae PCR NOT DETECTED (NOT DETECTE)
[2024-06-01] MEDS: KETOROLAC 15 MG/ML VIAL (*BKC) IV PUSH (21:31)
[2024-06-01 21:53] VITALS: BP 144/92; PULSE 86; RESP 16; O2SAT 98
[2024-06-01 22:19] LABS: HIV 1/2 Ab P24 Ag Result Negative (Negative)
[2024-06-01 22:39] LABS: Rapid Plasma Reagin Non-Reactive (NonReactive)
[2024-06-01] MEDS: cefTRIAXone 1 GM VIAL 0.5 GM IM (22:59)
[2024-06-01 23:04] VITALS: BP 124/78; PULSE 86; RESP 15; O2SAT 97
== END 2024-06-01 23:05 | disposition home or self-care (01) ==
PROVIDERS: Physician Assistant; Emergency Provider Physician Assistant
DX: R36.9 Urethral discharge, unspecified (principal); K29.70 Gastritis, unspecified, without bleeding
CPT/HCPCS: 36415; 74177; 80053; 81001; 83690; 85025; 86592; 86703; 87086; 87491; 87591; 87661; 96372; 96374; 99284; A9270; G0432; J0696; J1885; Q9967